=== PATIENT | male | born 1980 | race Caucasian/White ===

== ENCOUNTER 2020-01-02 09:41 | Emergency (ER) | payer BC, SELFPAY ==
[2020-01-02 09:42] VITALS: BP 138/90; PULSE 71; RESP 14; TEMP 37.1; O2SAT 99; BMI 32.1
--- NOTE | 2020-01-02 10:07 | HMH.EDUTC ---
[facility] [place] Clinical Impression: Exposure to COVID-19 virus Disposition: Home, Self-Care Condition on Discharge: Good Instructions: Preventing the Spread of Coronavirus Discharge Instructions Additional Instructions: *Monitor Temp, Over the counter Motrin or Tylenol as directed/as needed Tylenol every 4 hours and Motrin every 6 hours (as long as your family doctor has told you that you can take it) for fever or pain. and straight to ER if unable to lower temp less than 101.0 after medication given *Warm salt water gargles may help to soothe the throat *Throat Lozenges *Warm fluids like tea with honey may help to soothe the throat *Sleep elevated *Humidifier/Vaporizer *Flonase 2 sprays in each nostril daily but be aware that it may take 2-3 days before you notice improvement Follow up IMMEDIATELY for new or worsening symptoms or no Noticeable improvement over the next 48-72 hours. 911 for difficulty breathing or swallowing You was tested for today for COVID19 your test result should be back in the next 24-48 hours, you may call to the [facility] tomorrow to see if your test results are back and the result [phone] You was given a handout with instructions for Self Quarantine and Self isolation for while you wait on test results and what to do if they are positive If you are positive the Health Dept will be contacting you also Referrals: Eron Velez MD [Primary Care Provider] - As needed Forms: Work/School Release Time of Disposition: 10:08 Medical Decision Making - Will Inquiry Pt receiving controlled substance: No Will was queried for this patient: No Vital Signs: 01/02/20 09:42 Temperature 98.7 F Temperature Source Oral Pulse Rate [Left Radial] 71 Respiratory Rate 14 Blood Pressure [Right Arm] 138/90 Blood Pressure Mean [Right Arm] 106 Blood Pressure Source [Right Arm] Automatic Cuff Blood Pressure Position [Right Arm] Sitting 02 Sat by Pulse Oximetry 99 Oxygen Delivery Method Room Air Orders (Tests/Meds): ORDERS Category Date Time Status Covid-19 Nasal PCR ([facility]) Routine Lab 01/02/20 09:43 Ordered [facility] [place] - General Stated complaint: covid test Time Seen by Provider: 01/02/20 10:07 Mode of Arrival: Ambulatory Source of Information: Patient Limitations: No Limitations Description of Symptoms (Recalled from Triage Doc. by RN): WANTS A COVID TEST, IN A ROOM WITH SOMEONE THAT HAS IT, COMPANY MAKING HIM BE TESTED, NO SYMPTOMS HEENT Symptoms (Recalled from RN notes): No Resp Symptoms (Recalled from RN notes): No Skin Symptoms (Recalled from RN notes): No MS Symptoms (Recalled from RN notes): No Functional Status (Recalled from RN notes): NA - History of Present Illness Provider Complaint: Patient states that he was recently exposed to COVID by someone at work and his company is wanting him to get tested for COVID Statse that he is not having any symptoms - Related Data Home Medications Medication Instructions Recorded Confirmed diphenhydrAMINE HCL [Allergy 25 mg PO DAILY 01/02/20 01/02/20 Medicine] Allergies Allergy/AdvReac Type Severity Reaction Status Date / Time No Known Allergies Allergy Unverified 02/04/17 15:16 - Worker's Comp Is this a Worker's Comp case?: No Is this an H Worker's Comp?: No Is this a [facility] Worker's Comp?: No [facility] History - Hepatitis A Screen Drug use history?: No High risk sexual behaviors?: No History of sexually transmitted infection?: No Currently employed?: No Childcare worker?: No Do you have indoor plumbing?: Yes Do you have electricity?: Yes Attestation statement:: This patient has been screened for Hepatitis A risk factors. I have reviewed the patient's past medical history: Yes Medical History: Denies:: Cancer, Diabetes Mellitus Type 1, Diabetes Mellitus Type 2, MRSA Amputation: No Fractures: No - Social History Alcohol Intake: never Occupational Status: employed Housing: house Household Members: spous
[2020-01-02 10:15] VITALS: BP 138/90; PULSE 71; RESP 14; TEMP 37.1; O2SAT 99
== END 2020-01-02 10:15 | disposition home or self-care (01) ==
PROVIDERS: Emergency Provider Nurse Practitioner; PCP Family Medicine
DX: U07.1 COVID-19 (principal)
CPT/HCPCS: 99202; U0003